=== PATIENT | female | born 1975 | race Asian ===

== ENCOUNTER 2018-11-29 09:02 | Emergency (ER) | payer MEDICAID ==
[~2018-11-29] VITALS: Ht 165.1 cm; Wt 60.0 kg
[2018-11-29] MEDS ORDERED: GABA-529 PO (09:10)
[2018-11-29] MEDS ORDERED: IBUPROFEN 600MG TABLET PO ONE (09:30)
[2018-11-29] MEDS ORDERED: BACITRACIN ZINC OINT UDPKT TOP ONE (09:30)
[2018-11-29 09:46] VITALS: BP 170/89
== END 2018-11-29 09:40 | disposition home or self-care (01) ==
LOC: ER 09:38
DX: L03.115 Cellulitis of right lower limb (principal); E11.9 Type 2 diabetes mellitus without complications; I10 Essential (primary) hypertension; Z88.5 Allergy status to narcotic agent; Z79.899 Other long term (current) drug therapy
CPT/HCPCS: 99283